=== PATIENT | male | born 1965 | race Caucasian/White ===

== ENCOUNTER 2023-11-07 12:11 | Outpatient (CLI) | payer MEDICARE, MEDICAID ==
[2023-11-07 20:15] LABS: BASOPHILS # (AUTO) 0.1 10^3/uL (0.0-0.1); BASOPHILS % (AUTO) 1.2 %; EOSINOPHILS # (AUTO) 0.3 10^3/uL (0.0-0.7); EOSINOPHILS % (AUTO) 4.1 %; HCT - HEMATOCRIT 41.5 % (42.0-52.0); HGB - HEMOGLOBIN 13.9 g/dL (14.0-18.0); LYMPHOCYTES # (AUTO) 1.8 10^3/uL (1.5-3.5); LYMPHOCYTES % (AUTO) 26.4 %; MEAN CORPUSCULAR HEMOGLOBIN 33.1 pg (27.0-31.0); MEAN CORPUSCULAR HGB CONC 33.5 g/dL (32.0-36.0); MEAN CORPUSCULAR VOLUME 98.8 fL (80.0-94.0); MEAN PLATELET VOLUME 9.1 fL (7.4-11.4); MONOCYTES # (AUTO) 0.5 10^3/uL (0.0-1.0); PLT - PLATELET COUNT 297 10^3/uL (130-450); RED CELL DISTRIBUTION WIDTH 12.1 % (12.0-15.0); WHITE BLOOD COUNT 6.6 x10^3/uL (4.8-10.8)
[2023-11-07 20:23] LABS: ALBUMIN 4.3 g/dL (3.2-5.5); ALKALINE PHOSPHATASE 68 IU/L (42-121); ALT ALANINE AMINOTRANSFERASE 32 IU/L (10-60); AST ASPARTATE AMINOTRANSFERASE 47 IU/L (10-42); BILIRUBIN,TOTAL 0.4 mg/dL (0.2-1.0); BUN - BLOOD UREA NITROGEN 10 mg/dL (6-20); CALCIUM 8.7 mg/dL (8.5-10.3); CARBON DIOXIDE - CO2 22 mmol/L (21-32); CHLORIDE 105 mmol/L (101-111); CHOL/HDL RATIO 4.9 (<5.0); CHOLESTEROL 170 mg/dL; CREATININE 0.7 mg/dL (0.6-1.3); GFR - MDRD 116 (>89); GLUCOSE 157 mg/dL (74-104); HDL CHOLESTEROL 35 mg/dL; POTASSIUM 4.3 mmol/L (3.5-4.5); SODIUM 137 mmol/L (135-145); TOTAL PROTEIN 6.5 g/dL (6.4-8.9); TRIGLYCERIDES 457 mg/dL; URIC ACID 8.3 mg/dL (4.4-7.6)
[2023-11-07 20:32] LABS: THYROID STIMULATING HORMONE 2.01 uIU/mL (0.34-5.60)
[2023-11-07 20:48] LABS: LDL CHOLESTEROL,DIRECT 84 mg/dL (75-193); LDLD/HDL RATIO 2.4 (<3.6)
--- NOTE | 2023-11-10 15:24 | XRAY Report ---
PROCEDURE: Knee 2V LT INDICATIONS: LEFT KNEE PAIN TECHNIQUE: 2 views of the knee(s) were acquired. COMPARISON: None. FINDINGS: Bones: No fractures or dislocations. No suspicious bony lesions. Mild to moderate tricompartmenta l arthritic change most severe medially. Very minimal particular osteophytes. No erosions. Soft tissues: Mild knee joint effusion. No suspicious soft tissue calcifications or masses. IMPRESSION: Mild to moderate tricompartmental arthritic change. Reviewed by: Karie Callahan MD on 11/10/2023 3:23 PM PDT Approved by: Karie Callahan MD on 11/10/2023 3:23 PM PDT Station ID: [id number]
== END 2023-11-07 12:12 | disposition home or self-care (01) ==
LOC: DI.S 12:11
PROVIDERS: ATTEND Nurse Practitioner Acute Care
DX: M10.9 Gout, unspecified (principal); Z13.0 Encounter for screening for diseases of the blood and blood-forming organs and certain disorders involving the immune mechanism; Z13.220 Encounter for screening for lipoid disorders; Z13.228 Encounter for screening for other metabolic disorders; Z13.29 Encounter for screening for other suspected endocrine disorder
CPT/HCPCS: 36415; 80053; 80061; 83721; 84443; 84550; 85025